=== PATIENT | male | born 1980 | race Caucasian/White ===

== ENCOUNTER 2016-10-28 22:06 | Emergency (ER) | payer OTHER ==
[~2016-10-28] VITALS: Ht 177.8 cm; Wt 85.5 kg
[~2016-10-28 22:06] MED LIST: BACTERICIN30 GM TP; BENTYL20 MG PO; CLEOCIN150 MG PO; CLEOCIN300 MG PO; CLINDAMYCIN HC150 MG PO; CLINDAMYCIN HC300 MG PO; DILAUDID2 MG PO; HYDROCODON-ACE1 EAC7 PO; KEFLEX500 MG PO; LIDOCAINE5 GM TP; MEDROL DOSEPAK4 MG PO; MOTRIN800 MG PO; NAPROSYN500 MG PO; NAPROXEN500 MG PO; NOHOMEMEDS; NORCO 5/3251 TABLET PO; NORFLEX100 MG PO; PERCOCET 5/31 TABLET PO; PREDNISONE10 MG PO; PSEUDOEPHEDRINE30 MG PO; PYRIDIUM100 MG PO; SKELAXIN800 MG PO; ULTRAM50 MG PO; VALIUM5 MG PO; VICODIN 5-3001 EACH PO; ZITHROMAX Z-PA250 MG PO; ZOFRAN4 MG PO
[2016-10-28] MEDS ORDERED: TRAZODONE HCL50 MG PO (23:56)
[2016-10-29] MEDS ORDERED: TRAMADOL HCL50 MG PO (01:05)
[2016-10-29] MEDS ORDERED: NORCO 5/3251 TABLET PO (01:52)
[2016-10-29 01:59] VITALS: BP 119/80
== END 2016-10-29 02:00 | disposition home or self-care (01) ==
LOC: EME 22:06
PROC: 2W2JX4Z Dressing of Right Finger using Bandage (ICD-10-PCS; principal; 2016-10-29)
DX: T23.231A Burn of second degree of multiple right fingers (nail), not including thumb, initial encounter (principal); T31.0 Burns involving less than 10% of body surface; X08.8XXA Exposure to other specified smoke, fire and flames, initial encounter; F17.200 Nicotine dependence, unspecified, uncomplicated
CPT/HCPCS: 99281; 99284

== ENCOUNTER 2017-05-03 06:13 | Emergency (ER) | payer OTHER ==
[~2017-05-03] VITALS: Ht 177.8 cm; Wt 82.1 kg
[~2017-05-03 06:13] MED LIST changes: +TRAMADOL HCL50 MG PO; +TRAZODONE HCL50 MG PO
[2017-05-03] MEDS ORDERED: MOTRIN800 MG PO (08:24)
[2017-05-03] MEDS ORDERED: FLEXERIL10 MG PO (08:24)
[2017-05-03 08:33] VITALS: BP 99/71
== END 2017-05-03 08:51 | disposition home or self-care (01) ==
LOC: EME 06:13
DX: S46.191A Other injury of muscle, fascia and tendon of long head of biceps, right arm, initial encounter (principal); Y93.54 Activity, bowling; Z88.0 Allergy status to penicillin; Z88.5 Allergy status to narcotic agent; Z91.013 Allergy to seafood; Z91.09 Other allergy status, other than to drugs and biological substances
CPT/HCPCS: 76882; 99281; 99284

== ENCOUNTER 2017-05-20 21:51 | Emergency (ER) | payer OTHER ==
[~2017-05-20] VITALS: Ht 177.8 cm; Wt 82.8 kg
[~2017-05-20 21:51] MED LIST changes: +FLEXERIL10 MG PO
[2017-05-20 21:59] VITALS: BP 116/81
[2017-05-20] MEDS ORDERED: ZITHROMAX Z-PA250 MG PO (22:55)
[2017-05-20] MEDS ORDERED: DELTASONE20 M1 PO (22:55)
[2017-05-20] MEDS ORDERED: FLONASE16 G1 BOTH NARES (22:55)
== END 2017-05-20 23:20 | disposition home or self-care (01) ==
LOC: EME 21:51
DX: J32.9 Chronic sinusitis, unspecified (principal); J02.9 Acute pharyngitis, unspecified; Z88.0 Allergy status to penicillin; F17.200 Nicotine dependence, unspecified, uncomplicated
CPT/HCPCS: 99281; 99283; J7512

== ENCOUNTER 2017-07-01 00:09 | Emergency (ER) | payer OTHER ==
[~2017-07-01] VITALS: Ht 177.8 cm; Wt 83.7 kg
[~2017-07-01 00:09] MED LIST changes: +DELTASONE20 M1 PO; +FLONASE16 G1 BOTH NARES
[2017-07-01] MEDS ORDERED: CLEOCIN150 MG PO (01:17)
[2017-07-01] MEDS ORDERED: ULTRAM50 MG PO (01:17)
[2017-07-01 01:31] VITALS: BP 117/85
== END 2017-07-01 01:41 | disposition home or self-care (01) ==
LOC: EME 00:09
PROC: 3E0T3BZ Introduction of Anesthetic Agent into Peripheral Nerves and Plexi, Percutaneous Approach (ICD-10-PCS; principal; 2017-07-01)
DX: K08.89 Other specified disorders of teeth and supporting structures (principal); F17.200 Nicotine dependence, unspecified, uncomplicated; Z88.0 Allergy status to penicillin; Z88.8 Allergy status to other drugs, medicaments and biological substances
CPT/HCPCS: 99281; 99284

== ENCOUNTER 2017-08-07 23:11 | Emergency (ER) | payer OTHER ==
[~2017-08-07] VITALS: Ht 177.8 cm; Wt 82.4 kg
[2017-08-08 00:06] LABS: HEMATOCRIT 42.1 % (38.0-50.0); MCH 29.1 PG (29.0-34.0); MCHC 34.4 G/DL (30.0-36.0); MCV 84.4 FL (86-99); MEAN PLAT.VOLUME 9.7 uM^3 (9.0-12.4); PLATELET COUNT 233 K/uL (156-360); RBC DIS.WIDTH-CV 12.3 % (11.8-14.6); RBC DIS.WIDTH-SD 37.6 % (39-53); RED BLOOD COUNT 4.99 M/uL (4.00-5.50); WHITE BLOOD COUNT 12.5 K/uL (4.1-10.2)
[2017-08-08 00:09] LABS: ADD MIUA? NO; BILIRUBIN NEGATIVE; BLOOD NEGATIVE; COLOR COLORLESS ((YELLOW)); GLUCOSE (STRIP) NEGATIVE; KETONES NEGATIVE; LEUKOCYTES NEGATIVE; NITRITE NEGATIVE; PROTEIN (STRIP) NEGATIVE; SPECIFIC GRAVITY 1.003 (1.000-1.030); UCUL ADDED? NO; UROBILINOGEN 0.2 MG/DL (0.2-1.0)
[2017-08-08 00:20] LABS: CHLORIDE 106 mEq/L (99-109); SODIUM 141 mEq/L (136-147)
[2017-08-08 00:22] LABS: GLUCOSE 87 mg/dL (70-99)
[2017-08-08 00:23] LABS: ANION GAP 10 MEQ/L (2-14)
[2017-08-08 00:24] LABS: TOTAL BILIRUBIN 0.2 mg/dL (0.0-1.0)
[2017-08-08 00:25] LABS: ALKALINE PHOSPHATASE 64 IU/L (3-129)
[2017-08-08 00:26] LABS: GFR ESTIMATE (CALCULATED) > 59 mL/min/ (58.99-99999)
[2017-08-08 00:27] LABS: UREA NITROGEN (BUN) 12 mg/dL (9-23)
[2017-08-08 00:29] LABS: LIPASE 38 U/L (1.0-51.0)
[2017-08-08] MEDS ORDERED: NORCO 5/3251 TABLET PO (01:06)
[2017-08-08 01:23] VITALS: BP 127/85
== END 2017-08-08 01:36 | disposition home or self-care (01) ==
LOC: EME 23:11
PROVIDERS: Emergency Medicine
DX: S30.1XXA Contusion of abdominal wall, initial encounter (principal); M79.1 Myalgia; D72.829 Elevated white blood cell count, unspecified; X58.XXXA Exposure to other specified factors, initial encounter; F17.200 Nicotine dependence, unspecified, uncomplicated; Z88.0 Allergy status to penicillin
CPT/HCPCS: 80053; 81003; 83690; 85027; 99281; 99284

== ENCOUNTER 2017-10-06 04:54 | Emergency (ER) | payer OTHER ==
[~2017-10-06] VITALS: Ht 177.8 cm; Wt 83.1 kg
[2017-10-06] MEDS ORDERED: NAPROSYN500 MG PO (05:38)
[2017-10-06 06:02] VITALS: BP 126/82
== END 2017-10-06 06:02 | disposition home or self-care (01) ==
LOC: EME 04:54
PROC: 3E0T3BZ Introduction of Anesthetic Agent into Peripheral Nerves and Plexi, Percutaneous Approach (ICD-10-PCS; principal; 2017-10-06)
DX: K08.89 Other specified disorders of teeth and supporting structures (principal); S02.5XXA Fracture of tooth (traumatic), initial encounter for closed fracture; F17.200 Nicotine dependence, unspecified, uncomplicated; Z88.0 Allergy status to penicillin; Z88.5 Allergy status to narcotic agent
CPT/HCPCS: 99281; 99283

== ENCOUNTER 2017-11-12 23:24 | Emergency (ER) | payer OTHER ==
[~2017-11-12] VITALS: Ht 177.8 cm; Wt 82.2 kg
[2017-11-12 23:44] VITALS: BP 97/73
== END 2017-11-13 01:30 | disposition left against medical advice (07) ==
LOC: EME 23:24
DX: M54.5 Low back pain (principal); Z53.21 Procedure and treatment not carried out due to patient leaving prior to being seen by health care provider

== ENCOUNTER 2017-11-29 00:04 | Emergency (ER) | payer OTHER ==
[~2017-11-29] VITALS: Ht 177.8 cm; Wt 81.1 kg
[2017-11-29 00:37] LABS: HEMATOCRIT 42.3 % (38.0-50.0); HEMOGLOBIN 14.6 G/DL (12.5-16.6); MCHC 34.5 G/DL (30.0-36.0); MCV 83.9 FL (86-99); PLATELET COUNT 244 K/uL (156-360); RBC DIS.WIDTH-CV 12.6 % (11.8-14.6); RBC DIS.WIDTH-SD 38.4 % (39-53); RED BLOOD COUNT 5.04 M/uL (4.00-5.50); WHITE BLOOD COUNT 8.7 K/uL (4.1-10.2)
[2017-11-29 00:50] LABS: CHLORIDE 106 mEq/L (99-109); POTASSIUM 3.9 mEq/L (3.7-5.4); SODIUM 141 mEq/L (136-147)
[2017-11-29 00:52] LABS: GLUCOSE 107 mg/dL (70-99)
[2017-11-29 00:55] LABS: GFR ESTIMATE (CALCULATED) > 59 mL/min/ (58.99-99999)
[2017-11-29 00:56] LABS: UREA NITROGEN (BUN) 10 mg/dL (9-23)
[2017-11-29 01:18] LABS: APPEARANCE CLEAR ((CLEAR)); BILIRUBIN NEGATIVE; BLOOD NEGATIVE; COLOR YELLOW ((YELLOW)); GLUCOSE (STRIP) NEGATIVE; KETONES NEGATIVE; LEUKOCYTES NEGATIVE; NITRITE NEGATIVE; PROTEIN (STRIP) NEGATIVE; UCUL ADDED? NO
[2017-11-29 01:57] VITALS: BP 112/77
== END 2017-11-29 01:58 | disposition home or self-care (01) ==
LOC: EME 00:04
DX: R10.9 Unspecified abdominal pain (principal); F17.200 Nicotine dependence, unspecified, uncomplicated; Z98.890 Other specified postprocedural states; Z88.0 Allergy status to penicillin; Z88.5 Allergy status to narcotic agent; Z91.013 Allergy to seafood
CPT/HCPCS: 74176; 80048; 81003; 85027; 99281; 99284